=== PATIENT | male | born 1950 | race Two or more races ===

== ENCOUNTER 2016-11-07 07:52 | Inpatient (IN) | payer MEDICARE, OTHER ==
[~2016-11-07] VITALS: Ht 172.7 cm; Wt 94.9 kg
[2016-11-07] MEDS ORDERED: AMPICILLIN/SULBACTAM 3 GM in SODIUM CHLORIDE 0.9% 100 ML IVPB ONE (09:00)
[2016-11-07] MEDS ORDERED: SODIUM CHLORIDE 0.9% 1,000ML IVBOLUS ONE (09:00)
[2016-11-07] MEDS ORDERED: MORPHINE SULFATE 4 MG/ML, 1ML IVPush PRN ×2 (09:00→13:00)
[2016-11-07] MEDS ORDERED: SODIUM CHLORIDE FLUSH 10ML SYR IVF ONE (09:00)
[2016-11-07] MEDS ORDERED: ONDANSETRON 2MG/ML, 2ML IVPush ONE (09:00)
[2016-11-07 09:26] LABS: HEMATOCRIT 48.1 % (39.2-51.8); HEMOGLOBIN 16.4 g/dL (13.7-18.0); WHITE BLOOD COUNT 9.7 x10^3/uL (3.4-10)
[2016-11-07 09:35] LABS: BLOOD UREA NITROGEN 17 mg/dL (7-18)
[2016-11-07] MEDS ORDERED: ONDANSETRON 2MG/ML, 2ML ONE (09:40)
[2016-11-07] MEDS ORDERED: MORPHINE SULFATE 4 MG/ML, 1ML ONE (09:40)
[2016-11-07] MEDS ORDERED: DOCUSATE 100 MG CAPSULE PO PRN (13:00)
[2016-11-07] MEDS ORDERED: ACETAMINOPHEN 325 MG TABLET PO PRN (13:00)
[2016-11-07] MEDS ORDERED: BISACODYL 10 MG SUPP PR PRN (13:00)
[2016-11-07] MEDS ORDERED: POLYETHYLENE GLYCOL 17 GM PACKET PO PRN (13:00)
[2016-11-07] MEDS: SODIUM CHLORIDE 0.9% 1,000 ML IV SCH ×2 (13:42→23:09)
[2016-11-07 14:00] VITALS: BP 110/73
[2016-11-07] MEDS ORDERED: SODIUM PHOSPHATE 20 MMOL in SODIUM CHLORIDE 0.9% 500 ML IV ONE (19:00)
[2016-11-07 19:23] VITALS: BP 114/76
[2016-11-08 04:04] VITALS: BP 111/76
[2016-11-08 04:43] LABS: BLOOD UREA NITROGEN 17 mg/dL (7-18)
[2016-11-08 04:46] LABS: ASPARTATE AMINO TRANSFERASE 25 U/L (15-37)
[2016-11-08 04:47] LABS: HEMATOCRIT 41.8 % (39.2-51.8); HEMOGLOBIN 14.3 g/dL (13.7-18.0); WHITE BLOOD COUNT 6.9 x10^3/uL (3.4-10)
[2016-11-08 07:55] VITALS: BP 124/83
[2016-11-08 14:00] VITALS: BP 128/89
[2016-11-08 16:18] VITALS: BP 128/89
[2016-11-08] MEDS ORDERED: VANCOMYCIN PER PHARMACY MC PRN (18:00)
[2016-11-08] MEDS: PIPERACILLIN/TAZO/PMX 3.375GM 50 ML IV SCH (18:26)
[2016-11-08] MEDS: ENOXAPARIN 40 MG/0.4 ML SQ SCH (18:27)
[2016-11-08] MEDS ORDERED: PHARMACOKINETIC MONITORING MC PRN (18:30)
[2016-11-08] MEDS ORDERED: PHARMACOKINETIC CONSULTATION MC ONE (18:30)
[2016-11-08 19:20] VITALS: BP 121/79
[2016-11-08] MEDS: VANCOMYCIN 1,800 MG in SODIUM CHLORIDE 0.9% 250 ML IV SCH (20:01)
[2016-11-09] MEDS: PIPERACILLIN/TAZO/PMX 3.375GM 50 ML IV SCH ×3 (02:12→17:48)
[2016-11-09 02:30] VITALS: BP 116/81
[2016-11-09 04:43] LABS: HEMATOCRIT 41.6 % (39.2-51.8); HEMOGLOBIN 14.2 g/dL (13.7-18.0)
[2016-11-09 04:55] LABS: BLOOD UREA NITROGEN 16 mg/dL (7-18)
[2016-11-09 07:14] VITALS: BP 101/61
[2016-11-09 13:00] VITALS: BP 138/84
[2016-11-09] MEDS ORDERED: DOCUSATE 100 MG CAPSULE PO PRN (15:30)
[2016-11-09] MEDS ORDERED: ACETAMINOPHEN 325 MG TABLET PO PRN (15:30)
[2016-11-09] MEDS ORDERED: BISACODYL 10 MG SUPP PR PRN (15:30)
[2016-11-09] MEDS ORDERED: POLYETHYLENE GLYCOL 17 GM PACKET PO PRN (15:30)
[2016-11-09] MEDS: ENOXAPARIN 40 MG/0.4 ML SQ SCH (17:48)
[2016-11-09] MEDS: VANCOMYCIN 1,800 MG in SODIUM CHLORIDE 0.9% 250 ML IV SCH (20:00)
[2016-11-09 21:29] VITALS: BP 129/82
[2016-11-10 01:03] VITALS: BP 125/79
[2016-11-10] MEDS: PIPERACILLIN/TAZO/PMX 3.375GM 50 ML IV SCH ×3 (01:51→18:01)
[2016-11-10 05:36] LABS: HEMATOCRIT 41.1 % (39.2-51.8); HEMOGLOBIN 13.9 g/dL (13.7-18.0); WHITE BLOOD COUNT 5.7 x10^3/uL (3.4-10)
[2016-11-10 06:08] LABS: BLOOD UREA NITROGEN 14 mg/dL (7-18)
[2016-11-10 08:23] VITALS: BP 129/81
[2016-11-10 14:08] VITALS: BP 145/89
[2016-11-10] MEDS: ENOXAPARIN 40 MG/0.4 ML SQ SCH (17:59)
[2016-11-10 19:14] VITALS: BP 137/86
[2016-11-10] MEDS: DOXYCYCLINE 100MG TABLET PO SCH (20:27)
[2016-11-11 02:00] VITALS: BP 123/84
[2016-11-11 04:57] LABS: HEMATOCRIT 41.2 % (39.2-51.8); HEMOGLOBIN 14.4 g/dL (13.7-18.0); WHITE BLOOD COUNT 6.7 x10^3/uL (3.4-10)
[2016-11-11 07:45] VITALS: BP 134/91
[2016-11-11] MEDS: DOXYCYCLINE 100MG TABLET PO SCH (08:09)
[2016-11-11] MEDS ORDERED: ASPI-496 PO (11:51)
[2016-11-11] MEDS ORDERED: DOXY100T PO (11:51)
[2016-11-11 13:55] VITALS: BP 143/93
[2016-11-11 17:42] VITALS: BP 147/88
[2016-11-11] MEDS: ENOXAPARIN 40 MG/0.4 ML SQ SCH (17:42)
== END 2016-11-11 18:20 | DRG 603 ==
LOC: ED 10:44 → EDIP 11:37 → 3NW 13:10 → 4NOR 11-09 12:37
PROVIDERS: ADMIT Internal Medicine; ATTEND Internal Medicine
DX: L03.116 Cellulitis of left lower limb (principal); I73.9 Peripheral vascular disease, unspecified; N39.0 Urinary tract infection, site not specified; F17.210 Nicotine dependence, cigarettes, uncomplicated; M19.079 Primary osteoarthritis, unspecified ankle and foot; Z82.49 Family history of ischemic heart disease and other diseases of the circulatory system; R00.0 Tachycardia, unspecified; R60.9 Edema, unspecified; I87.8 Other specified disorders of veins
CPT/HCPCS: 36415; 71010; 80048; 80053; 81001; 82040; 83735; 84100; 85025; 85610; 85730; 87040; 87070; 87077; 87086; 87147; 87186; 87205; 93922; 93970; 96365; 96375; J0295; J1650; J2405; J2543; J3370; J7030; J7040; J7050

== ENCOUNTER 2019-11-19 18:17 | Emergency (ER) | payer MEDICARE ==
[~2019-11-19] VITALS: Ht 172.7 cm; Wt 95.8 kg
[~2019-11-19 18:17] MED LIST: ASPI-496 PO; DOXY100T PO
[2019-11-19 18:20] VITALS: BP 121/77
== END 2019-11-19 19:53 | disposition home or self-care (01) ==
LOC: ED 19:34
DX: L02.414 Cutaneous abscess of left upper limb (principal)
CPT/HCPCS: 99283